=== PATIENT | male | born 1945 | race Caucasian/White ===

== ENCOUNTER 2020-01-17 13:05 | Outpatient (REF) | payer MEDICARE, SELFPAY | END 2020-01-17 13:06 | disposition home or self-care (01) | LOC: HO.BBR 13:05 | PROVIDERS: PCP Internal Medicine; Visit Provider Internal Medicine | DX: E83.110 Hereditary hemochromatosis (principal) | CPT/HCPCS: 99195 ==

== ENCOUNTER 2021-02-05 11:43 | Outpatient (REF) | payer MEDICARE, SELFPAY | END 2021-02-05 11:44 | disposition home or self-care (01) | LOC: HO.BBR 11:43 | PROVIDERS: Visit Provider Internal Medicine | DX: Z13.89 Encounter for screening for other disorder (principal) ==

== ENCOUNTER 2021-05-07 12:41 | Outpatient (REF) | payer MEDICARE, SELFPAY | END 2021-05-07 12:42 | disposition home or self-care (01) | LOC: HO.BBR 12:41 | PROVIDERS: Visit Provider Internal Medicine | DX: Z13.89 Encounter for screening for other disorder (principal) ==

== ENCOUNTER 2021-08-05 12:42 | Outpatient (REF) | payer MEDICARE, SELFPAY | END 2021-08-05 12:43 | disposition home or self-care (01) | LOC: HO.BBR 12:42 | PROVIDERS: Visit Provider Internal Medicine | DX: Z13.89 Encounter for screening for other disorder (principal) ==

== ENCOUNTER 2021-11-04 12:50 | Outpatient (REF) | payer MEDICARE, SELFPAY | END 2021-11-04 12:51 | disposition home or self-care (01) | LOC: HO.BBR 12:50 | PROVIDERS: Visit Provider Internal Medicine | DX: Z13.89 Encounter for screening for other disorder (principal) ==

== ENCOUNTER 2022-01-06 13:48 | Outpatient (REF) | payer MEDICARE, SELFPAY | END 2022-01-06 13:49 | disposition home or self-care (01) | LOC: HO.BBR 13:48 | PROVIDERS: Visit Provider Internal Medicine | DX: Z13.89 Encounter for screening for other disorder (principal) ==

== ENCOUNTER 2022-03-10 13:04 | Outpatient (REF) | payer MEDICARE, SELFPAY | END 2022-03-10 13:05 | disposition home or self-care (01) | LOC: HO.BBR 13:04 | PROVIDERS: Visit Provider Internal Medicine | DX: Z13.89 Encounter for screening for other disorder (principal) ==

== ENCOUNTER 2022-03-18 12:53 | Outpatient (REF) | payer MEDICARE, SELFPAY | END 2022-03-18 12:54 | disposition home or self-care (01) | LOC: HO.BBR 12:53 | PROVIDERS: Visit Provider Internal Medicine | DX: Z13.89 Encounter for screening for other disorder (principal) ==

== ENCOUNTER 2022-11-18 14:24 | Outpatient (REF) | payer MEDICARE, SELFPAY | END 2022-11-18 14:25 | disposition home or self-care (01) | LOC: HO.BBR 14:24 | PROVIDERS: PCP Internal Medicine; Visit Provider Internal Medicine | DX: Z13.89 Encounter for screening for other disorder (principal) ==